=== PATIENT | female | born 1940 | race Caucasian/White ===

== ENCOUNTER 2018-08-27 02:18 | Observation (INO) | payer MEDICARE, OTHER ==
[~2018-08-27] VITALS: Ht 160 cm; Wt 99.6 kg
[2018-08-27 02:52] LABS: BASOPHILS PERCENT AUTO 1 % (0-2); EOSINOPHILS ABSOLUTE AUTO 1.46 K/mm3 (0.00-0.68); EOSINOPHILS PERCENT AUTO 11 % (0-6); Hematocrit 31.5 % (33.0-51.0); Hemoglobin 9.7 g/dL (11.5-16.0); IMMATURE GRAN ABSOLUTE AUTO 0.16 K/mm3 (0.00-0.10); IMMATURE GRAN PERCENT AUTO 1 % (0-1); LYMPHOCYTES ABSOLUTE AUTO 1.43 K/mm3 (0.84-5.20); LYMPHOCYTES PERCENT AUTO 11 % (21-46); MONOCYTES ABSOLUTE AUTO 0.99 K/mm3 (0.16-1.47); MONOCYTES PERCENT AUTO 7 % (4-13); Mean Corpuscular HGB 31.4 pg (26.0-34.0); Mean Corpuscular HGB Conc 30.8 g/dL (31.5-36.5); Mean Corpuscular Volume 102 fL (80-100); Mean Platelet Volume 10.5 fL (9.1-12.4); NEUTROPHILS ABSOLUTE AUTO 9.22 K/mm3 (1.96-9.15); NEUTROPHILS PERCENT AUTO 69 % (41-73); Platelet Count 254 K/mm3 (150-400); RDW Coefficient Variation 14.7 % (11.7-14.2); RDW Standard Deviation 54.5 fL (35.1-46.3); Red Blood Cell Count 3.09 M/mm3 (3.80-5.20); White Blood Cell Count 13.36 K/mm3 (4.00-11.30)
[2018-08-27] MEDS ORDERED: ASPI81CH PO (03:06)
[2018-08-27] MEDS ORDERED: ATOR20 PO (03:08)
[2018-08-27] MEDS ORDERED: WARF2.5 PO (03:09)
[2018-08-27] MEDS ORDERED: LEVSOD75 PO (03:09)
[2018-08-27] MEDS ORDERED: POTCHL20ER PO (03:09)
[2018-08-27] MEDS ORDERED: FURO40 PO (03:09)
[2018-08-27] MEDS ORDERED: DOXA1 PO (03:10)
[2018-08-27] MEDS ORDERED: PRAM.5 PO (03:10)
[2018-08-27] MEDS ORDERED: AMLO5 PO (03:10)
[2018-08-27] MEDS ORDERED: METO50ER PO (03:11)
[2018-08-27] MEDS ORDERED: LOSARTAN POTAS100 MG PO (03:11)
[2018-08-27] MEDS ORDERED: CHOL10002 PO (03:12)
[2018-08-27] MEDS ORDERED: OMEPRAZOLE MAGN20 MG PO (03:12)
[2018-08-27] MEDS ORDERED: VIT1CAPS12 PO (03:12)
[2018-08-27] MEDS ORDERED: MONT10T PO (03:13)
[2018-08-27] MEDS ORDERED: ACET325 PO (03:14)
[2018-08-27 03:15] LABS: Alanine Aminotransfer (ALT/SGP 50 U/L (12-78); Albumin/Globulin Ratio 0.7 (0.8-1.8); Alk Phos 260 U/L (50-136); Anion Gap 8 mmol/L (6-16); Aspartate Aminotrans (AST/SGOT 28 U/L (12-37); Bilirubin, Total 0.5 mg/dL (0.1-1.0); Blood Urea Nitrogen 37 mg/dL (8-24); Bun/Creatinine Ratio 31.6 (12.0-20.0); CO2, Blood 25 mmol/L (21-32); Calcium, Blood 8.4 mg/dL (8.5-10.1); Chloride, Blood 109 mmol/L (98-108); Creatinine, Blood 1.17 mg/dL (0.40-1.00); Globulin, Blood 4.6 g/dL (2.2-4.0); Glomerular Filtration Rate 47 (60-); Glucose, Blood 134 mg/dL (70-99); Potassium, Blood 4.4 mmol/L (3.5-5.5); Sodium, Blood 142 mmol/L (136-145); Total Protein, Blood 7.6 g/dL (6.4-8.2); Troponin I <0.015 ng/mL (0.000-0.040)
[2018-08-27 05:29] LABS: International Normalized Ratio 1.29; Prothrombin Time Results 13.1 Sec (9.7-11.5)
[2018-08-27 05:42] LABS: Magnesium, Blood 2.6 mg/dL (1.6-2.4)
[2018-08-27 05:59] LABS: Thyroid Stimulating Hormone 3.12 uIU/mL (0.360-4.800)
== END 2018-08-27 12:23 | disposition home or self-care (01) ==
LOC: ER 02:18 → MEDS 04:59 → ER 04:59 → MEDS 05:00
PROVIDERS: Emergency Medicine; Family Medicine
DX: J96.01 Acute respiratory failure with hypoxia (principal); I50.9 Heart failure, unspecified; I48.2 Chronic atrial fibrillation; D72.829 Elevated white blood cell count, unspecified; G47.33 Obstructive sleep apnea (adult) (pediatric); F17.210 Nicotine dependence, cigarettes, uncomplicated; D53.9 Nutritional anemia, unspecified; I48.91 Unspecified atrial fibrillation; R74.8 Abnormal levels of other serum enzymes; D63.8 Anemia in other chronic diseases classified elsewhere; R79.89 Other specified abnormal findings of blood chemistry; N28.9 Disorder of kidney and ureter, unspecified; Z88.8 Allergy status to other drugs, medicaments and biological substances; Z79.82 Long term (current) use of aspirin; Z79.899 Other long term (current) drug therapy; Z91.19 Patient's noncompliance with other medical treatment and regimen; Z79.01 Long term (current) use of anticoagulants; Z86.73 Personal history of transient ischemic attack (TIA), and cerebral infarction without residual deficits
CPT/HCPCS: 36415; 71046; 80053; 82607; 82728; 82746; 83540; 83550; 83735; 83880; 84443; 84484; 85025; 85610; 93005; 93010; 93306; 96374; 99285-25; J1940

== ENCOUNTER → 2019-08-07 | Outpatient (CLI) | payer MEDICARE, OTHER ==
[~2019-08-07] MED LIST: ACET325 PO; AMLO5 PO; ASPI81CH PO; ATOR20 PO; CHOL10002 PO; DOXA1 PO; FURO40 PO; LEVSOD75 PO; LOSARTAN POTAS100 MG PO; METO50ER PO; MONT10T PO; OMEPRAZOLE MAGN20 MG PO; POTCHL20ER PO; PRAM.5 PO; VIT1CAPS12 PO; WARF2.5 PO
== END | disposition home or self-care (01) ==
LOC: LAB SHORT 13:12 → LAB EV 13:12
DX: S81.802A Unspecified open wound, left lower leg, initial encounter (principal)
CPT/HCPCS: 87070; 87075; 87205

== ENCOUNTER 2020-01-06 10:36 | Inpatient (IN) | payer MEDICARE, OTHER ==
[~2020-01-06] VITALS: Ht 157.5 cm; Wt 90.2 kg
[~2020-01-06 10:36] MED LIST changes: -ASPI81CH PO; -ATOR20 PO; -CHOL10002 PO; -FURO40 PO; -LEVSOD75 PO; -METO50ER PO; -MONT10T PO; -OMEPRAZOLE MAGN20 MG PO; -POTCHL20ER PO; -VIT1CAPS12 PO; -WARF2.5 PO
[2020-01-06 11:19] LABS: Source, Urine Catheter
[2020-01-06 11:23] LABS: BASOPHILS ABSOLUTE AUTO 0.07 K/mm3 (0.00-0.23); BASOPHILS PERCENT AUTO 0 % (0-2); EOSINOPHILS ABSOLUTE AUTO 0.22 K/mm3 (0.00-0.68); EOSINOPHILS PERCENT AUTO 1 % (0-6); IMMATURE GRAN ABSOLUTE AUTO 0.06 K/mm3 (0.00-0.10); IMMATURE GRAN PERCENT AUTO 0 % (0-1); LYMPHOCYTES ABSOLUTE AUTO 0.73 K/mm3 (0.84-5.20); LYMPHOCYTES PERCENT AUTO 5 % (21-46); MONOCYTES ABSOLUTE AUTO 1.21 K/mm3 (0.16-1.47); MONOCYTES PERCENT AUTO 8 % (4-13); Mean Corpuscular HGB 32.4 pg (26.0-34.0); Mean Corpuscular HGB Conc 31.7 g/dL (31.5-36.5); Mean Corpuscular Volume 102 fL (80-100); Mean Platelet Volume 11.2 fL (9.1-12.4); NEUTROPHILS ABSOLUTE AUTO 13.91 K/mm3 (1.96-9.15); NEUTROPHILS PERCENT AUTO 86 % (41-73); Platelet Count 229 K/mm3 (150-400); RDW Coefficient Variation 15.6 % (11.7-14.2); RDW Standard Deviation 59.3 fL (35.1-46.3); Red Blood Cell Count 4.01 M/mm3 (3.80-5.20)
[2020-01-06 11:25] LABS: Bilirubin, Urine Neg (Neg); Blood, Urine 2+ (Neg); Glucose Qualitative, Urine Neg (Neg); Ketones, Urine Neg (Neg); Leukocyte Esterase, Urine 3+ (Neg); Nitrite, Urine Pos (Neg); Protein, Urine 1+ (Neg); Specific Gravity, Urine 1.015 (1.003-1.022); Urobilinogen, Urine NORM (Normal)
[2020-01-06 11:31] LABS: Appearance, Urine Hazy (Clear); Color, Urine Yellow (P-Yellow)
[2020-01-06 11:32] LABS: Bacteria Mod /hpf; Squamous Epithelial Cells Mod /hpf (Few)
[2020-01-06 11:48] LABS: Albumin, Blood 3.5 g/dL (3.4-5.0); Albumin/Globulin Ratio 0.8 (0.8-1.8); Bilirubin, Total 0.6 mg/dL (0.1-1.0); Bun/Creatinine Ratio 34.3 (12.0-20.0); Calcium, Blood 8.9 mg/dL (8.5-10.1); Creatinine, Blood 1.08 mg/dL (0.40-1.00); Globulin, Blood 4.4 g/dL (2.2-4.0); Potassium, Blood 4.9 mmol/L (3.5-5.5); Total Protein, Blood 7.9 g/dL (6.4-8.2)
[2020-01-06] MEDS ORDERED: LEVSOD75 PO (12:41)
[2020-01-06] MEDS ORDERED: ATOR20 PO (12:41)
[2020-01-06] MEDS ORDERED: ASPIR 8181 M1 PO (12:41)
[2020-01-06] MEDS ORDERED: K-Dur10 MEQ PO (12:42)
[2020-01-06] MEDS ORDERED: FURO40 PO (12:43)
[2020-01-06] MEDS ORDERED: METO100 PO (12:45)
[2020-01-06] MEDS ORDERED: VITAMIN D325 MCG PO (12:46)
[2020-01-06] MEDS ORDERED: ALLEGRA ALLERG180 MG PO (12:47)
[2020-01-06] MEDS ORDERED: MONT10T PO (12:47)
[2020-01-06] MEDS ORDERED: OMEP20ER PO (12:47)
[2020-01-06] MEDS ORDERED: Fergon240 M1 PO (12:48)
[2020-01-06] MEDS ORDERED: LOSA25 PO (12:48)
[2020-01-06] MEDS ORDERED: DILT120 PO (12:48)
[2020-01-06] MEDS ORDERED: WARF4 PO (12:49)
[2020-01-06] MEDS ORDERED: WARF6 PO (12:50)
[2020-01-06] MEDS ORDERED: PRESERVISION A1 EACH PO ×2 (12:52→16:30)
[2020-01-06] MEDS ORDERED: GABA100 PO ×2 (12:53)
[2020-01-06] MEDS ORDERED: Oxybutynin Chlo10 MG PO (12:54)
[2020-01-06] MEDS ORDERED: Mirtazapine7.5 MG PO (12:54)
[2020-01-06] MEDS ORDERED: ROPINIROLE HCL0.5 MG PO (12:55)
[2020-01-06] MEDS ORDERED: ALDACTONE25 M1 PO (12:56)
[2020-01-06] MEDS ORDERED: Colace100 MG PO (12:57)
[2020-01-06] MEDS ORDERED: CALC.25 PO (12:58)
[2020-01-06] MEDS ORDERED: CALCIUM 600 +1 EA11 PO (12:59)
[2020-01-06] MEDS ORDERED: CHOLP PO (13:00)
[2020-01-06] MEDS ORDERED: ALBU90OI INH (13:00)
[2020-01-06] MEDS ORDERED: Vitamin K100 MCG PO (13:00)
[2020-01-06] MEDS ORDERED: CLOB.05TO TOP (13:01)
[2020-01-06] MEDS ORDERED: Eq Liquid Anta769 ML PO (13:03)
[2020-01-06] MEDS ORDERED: BENZ100A PO (13:03)
[2020-01-06] MEDS ORDERED: CERAVE MOISTUR TOP (13:05)
[2020-01-06] MEDS ORDERED: SALONPAS TOP (13:07)
[2020-01-06] MEDS ORDERED: BISA10S PR (13:08)
[2020-01-06] MEDS ORDERED: MILK OF MA400 MG/5 M PO (13:08)
[2020-01-06] MEDS ORDERED: LOPE2C PO (13:10)
[2020-01-06] MEDS ORDERED: [UNRECOGNIZED DRUG - OTHER] TOP (13:11)
[2020-01-06 14:15] LABS: Adenovirus Not Detected (NOT DETECT); Bordetella pertussis Not Detected (NOT DETECT); Chlamydophila pneumoniae Not Detected (NOT DETECT); Coronavirus 229E Not Detected (NOT DETECT); Coronavirus HKU1 Not Detected (NOT DETECT); Coronavirus NL63 Not Detected (NOT DETECT); Coronavirus OC43 Not Detected (NOT DETECT); Human Metapneumovirus Not Detected (NOT DETECT); Human Rhinovirus/Enterovirus Not Detected (NOT DETECT); Influenza A/2009-H1 Not Detected (NOT DETECT); Influenza A/H1 Not Detected (NOT DETECT); Influenza A/H3 Not Detected (NOT DETECT); Influenza B Not Detected (NOT DETECT); Mycoplasma pneumoniae Not Detected (NOT DETECT); Parainfluenza Virus 1 Not Detected (NOT DETECT); Parainfluenza Virus 2 Not Detected (NOT DETECT); Parainfluenza Virus 3 Not Detected (NOT DETECT); Parainfluenza Virus 4 Not Detected (NOT DETECT); Respiratory Syncytial Virus Not Detected (NOT DETECT)
--- NOTE | 2020-01-06 18:34 | NUR ---
SHIFT SUMMARY: ASSUMED CARE OF PATIENT UPON HER ARRIVAL FROM ED. ONE PERSON ASSIST FROM GURNEY TO BED, GAIT WEAK. A&O X 2, UNSURE OF DATE/DAY, KNOWS WHY SHE'S IN THE HOSPITAL. LUNGS CTAB, ON RA, NO COUGH. IN AFIB, RATE 70-90'S. KAPOOR DRAINING CLEAR YELLOW URINE. AFEBRILE, VSS, DENIES PAIN. ABLE TO CHANGE POSITIONS INDEPENDENTLY. NO DIFFICULTY SWALLOWING. EDUCATED ABOUT UNIT ROUTINE, CALL LIGHT, AND FALL/PRESSURE ULCER PREVENTION; VERBALIZED UNDERSTANDING, BUT NEEDS REIFORCEMENT.
--- NOTE | 2020-01-06 21:57 | NUR ---
ALERTED CARMEN (FILM TESTS CHECKER) OF EXTENSIVE HOME MED LIST W/ONLY A PORTION OF THEM RX'D AT THIS TIME. SHE REVIEWED THEM AND STATED THE DAY MD CAN REEVALUATE HOME MEDS AND NEED OF CONTINUATION IN AM.
--- NOTE | 2020-01-07 01:30 | NUR ---
PT HAS BEEN VERY FORGETFUL AND IMPULSIVE OOB THIS SHIFT. SHE C/O RESTLESS LEGS THAT ARE "UNBEARABLE" SO CAUSE DIFFICULTY SLEEPING RESULT. SHE SEEMS ORIENTED IN CONVERSATION BUT MAKES NONSENSICAL STATEMENTS AND BEHAVIORS. SHE'S AWARE OF HER KAPOOR AND IT'S PURPOSE TO DRAIN URINE BUT SHE UNCLAMMPED IT HERSELF TO EMPTY IT ONTO THE FLOOR AND INTO HER BED BECAUSE SHE WAS "TRYING TO PEE". SHE'S AWARE OF HER LINES AND CAN TELL STAFF WHAT EACH IS FOR BUT YET SHE REMOVES AND DISCONNECTS THEM REPEATEDLY. ALERTED TO SITUATION W/HOME REMERON AND REQUIP RX'D AND GIVEN NOW. IT SEEMS THE MAJORITY OF THIS AGGITATED BEHAVIOR IS STEMMING FROM HER LEG DISCOMFORT AND THUS NOT PROVIDING ADEQUATE SLEEP REST. CREAM PROVIDED FOR "ITCHING LEGS" WELL. WILL ASSESS FOR EFFECT.
[2020-01-07 05:22] LABS: BASOPHILS ABSOLUTE AUTO 0.05 K/mm3 (0.00-0.23); BASOPHILS PERCENT AUTO 1 % (0-2); EOSINOPHILS ABSOLUTE AUTO 0.36 K/mm3 (0.00-0.68); EOSINOPHILS PERCENT AUTO 3 % (0-6); Hematocrit 39.2 % (33.0-51.0); Hemoglobin 12.3 g/dL (11.5-16.0); IMMATURE GRAN ABSOLUTE AUTO 0.04 K/mm3 (0.00-0.10); IMMATURE GRAN PERCENT AUTO 0 % (0-1); LYMPHOCYTES ABSOLUTE AUTO 1.39 K/mm3 (0.84-5.20); LYMPHOCYTES PERCENT AUTO 13 % (21-46); MONOCYTES ABSOLUTE AUTO 0.92 K/mm3 (0.16-1.47); MONOCYTES PERCENT AUTO 9 % (4-13); Mean Corpuscular HGB 32.5 pg (26.0-34.0); Mean Corpuscular HGB Conc 31.4 g/dL (31.5-36.5); Mean Corpuscular Volume 103 fL (80-100); Mean Platelet Volume 11.5 fL (9.1-12.4); NEUTROPHILS ABSOLUTE AUTO 7.89 K/mm3 (1.96-9.15); NEUTROPHILS PERCENT AUTO 74 % (41-73); Platelet Count 194 K/mm3 (150-400); RDW Coefficient Variation 15.7 % (11.7-14.2); Red Blood Cell Count 3.79 M/mm3 (3.80-5.20); White Blood Cell Count 10.65 K/mm3 (4.00-11.30)
--- NOTE | 2020-01-07 05:31 | NUR ---
SUMMARY: PT'S ORIENTATION SEEMS TO BE LABILE. SHE APPEARS TO ANSWER Q'S APPROPRIATE BUT EXHIBITS IMPULSIVE AND NONSENSICAL BEHAVIOR DESPITE DESCRIBING AWARENESS OF EVENT, PURPOSE OF LINES AND KNOWLEGE OF MEDS. BED ALARM IS ON FOR FREQ ATTEMPTS OOB BY SELF AND FALL RISK. CONSTANT EDUCATION AND REMINDERS WERE PROVIDED. PT WAS MEDICATED W/TYLENOL PRN FOR BUTTOCKS AND LEG PAIN RELATED TO RESTLESS LEGS. SHE WAS VERY ANXIOUS, COULDN'T HOLD STILL (LIKELY D/T RESTLESS LEGS) AND WAS UNABLE TO SLEEP RESULT. NOTIFIED W/REMERON AND REQUIP RX'D PER HOME MEDS. SHE HAS SINCE CALMED DOWN AND BEEN ABLE TO SLEEP. HER HOME MED LIST IS EXTENSIVE THOUGH AND VERY FEW ARE RX'D AT THIS TIME, WILL ENSURE DAY STAFF ARE AWARE PER INSTRUCTION FROM [facility]. SHE'S IN ISO FOR R/O COVID W/ADMISSION FOR PNM. LS ARE CLEAR T/O AND DIM IN BASES, SPO2 WNL ON RA, RESPS E/U AND CONT BIOX INTACT. KAPOOR WAS PLACED IN ER AND REMAINS PATENT AND DRAINING. THIS LIKELY CAN BE REMOVED TODAY W/DAY SHIFT EVALUATION. SHE REMAINS IN AFIB W/HR 70'S-90'S BPM. TRACE EDEME NOTED TO BLE'S WHICH APPEAR DRY, PEELING AND DISCOLORED. NO ACUTE CHANGES, VSS/AFEBRILE. BP ELEVATED BUT AM HOME MEDS STILL NEED ADDRESSED AND PT ASYMPTOMATIC OF CARDIAC DISTRESS. WCTM AND REPORT TO DAY RN.
[2020-01-07 05:40] LABS: Albumin/Globulin Ratio 0.7 (0.8-1.8); Bilirubin, Total 0.8 mg/dL (0.1-1.0); Bun/Creatinine Ratio 27.6 (12.0-20.0); Calcium, Blood 8.7 mg/dL (8.5-10.1); Creatinine, Blood 1.05 mg/dL (0.40-1.00); Globulin, Blood 4.5 g/dL (2.2-4.0); Magnesium, Blood 2.5 mg/dL (1.6-2.4); Potassium, Blood 4.3 mmol/L (3.5-5.5); Total Protein, Blood 7.5 g/dL (6.4-8.2)
[2020-01-07 15:59] LABS: International Normalized Ratio 2.14; Prothrombin Time Results 21.9 Sec (9.7-11.5)
--- NOTE | 2020-01-07 17:38 | NUR ---
PATIENT IS ALERT AND ORIENTED TO SELF, FAMILY AND FOLLOWING DIRECTIONS. ACCORDING TO HE DAUGHTER, SHE HAS BECOME MORE CONFUSED RECENTLY AT HOME. THE PATIENT DID HAVE BURSTS OF CONFUSION, HALUCINATIONS AND TIMES WHERE SHE SEEMED LUCID. HER KAPOOR WAS DC'D TODAY. SHE URINATED IN THE TOILET. SHE WAS HYPERTENSIVE TODAY, TREATED PER EMAR. SHE HAS RESTLESS LEGS, SHE MOVES AROUND IN BED ON HER OWN WELL. SHE WILL GET OUT OF BED AND OUT OF THE CHAIR ALONE, ALARMS ON. SHE HAS TALKED ON THE PHONE WITH HER DAUGHTERS TODAY. HER HOME MEDICATIONS WERE ORDERED BY DR. STRINGER. WILL CONTINUE TO MONITOR.
[2020-01-08 04:52] LABS: BASOPHILS ABSOLUTE AUTO 0.07 K/mm3 (0.00-0.23); BASOPHILS PERCENT AUTO 1 % (0-2); EOSINOPHILS ABSOLUTE AUTO 0.48 K/mm3 (0.00-0.68); EOSINOPHILS PERCENT AUTO 4 % (0-6); Hematocrit 40.8 % (33.0-51.0); Hemoglobin 12.8 g/dL (11.5-16.0); IMMATURE GRAN ABSOLUTE AUTO 0.07 K/mm3 (0.00-0.10); IMMATURE GRAN PERCENT AUTO 1 % (0-1); LYMPHOCYTES ABSOLUTE AUTO 1.27 K/mm3 (0.84-5.20); LYMPHOCYTES PERCENT AUTO 12 % (21-46); MONOCYTES ABSOLUTE AUTO 1.05 K/mm3 (0.16-1.47); MONOCYTES PERCENT AUTO 10 % (4-13); Mean Corpuscular HGB 31.9 pg (26.0-34.0); Mean Corpuscular HGB Conc 31.4 g/dL (31.5-36.5); Mean Corpuscular Volume 102 fL (80-100); NEUTROPHILS ABSOLUTE AUTO 8.15 K/mm3 (1.96-9.15); NEUTROPHILS PERCENT AUTO 74 % (41-73); Platelet Count 198 K/mm3 (150-400); RDW Coefficient Variation 15.3 % (11.7-14.2); RDW Standard Deviation 58.6 fL (35.1-46.3); Red Blood Cell Count 4.01 M/mm3 (3.80-5.20); White Blood Cell Count 11.09 K/mm3 (4.00-11.30)
[2020-01-08 05:06] LABS: International Normalized Ratio 1.87; Prothrombin Time Results 19.3 Sec (9.7-11.5)
[2020-01-08 05:15] LABS: Albumin/Globulin Ratio 0.6 (0.8-1.8); Bun/Creatinine Ratio 26.7 (12.0-20.0); Calcium, Blood 8.9 mg/dL (8.5-10.1); Creatinine, Blood 1.01 mg/dL (0.40-1.00); Globulin, Blood 4.8 g/dL (2.2-4.0); Potassium, Blood 3.6 mmol/L (3.5-5.5); Total Protein, Blood 7.8 g/dL (6.4-8.2)
--- NOTE | 2020-01-08 05:16 | NUR ---
SUMMARY PT HAD NO ISSUES NOTED. PT SLEPT T/O SHIFT. PT CURRENTLY SLEEPING IN NO DISTRESS. CALL LIGHT IN REACH. BED ALARM ON.
--- NOTE | 2020-01-08 17:40 | NUR ---
ALERT. ORIENTED. FORGETFUL. HAD PT/OT AND DID WELL. STEADY GAIT IN HALLWAY. NO ACUTE CHANGES. UNLABORED RESPIRATIONS. WCTM
[2020-01-09 05:26] LABS: International Normalized Ratio 2.26; Prothrombin Time Results 23.1 Sec (9.7-11.5)
[2020-01-09 05:33] LABS: Albumin, Blood 2.9 g/dL (3.4-5.0); Anion Gap 8 mmol/L (6-16); Blood Urea Nitrogen 39 mg/dL (8-24); CO2, Blood 26 mmol/L (21-32); Calcium, Blood 9.2 mg/dL (8.5-10.1); Chloride, Blood 106 mmol/L (98-108); Glomerular Filtration Rate 42 (60-); Glucose, Blood 115 mg/dL (70-99); Sodium, Blood 140 mmol/L (136-145)
--- NOTE | 2020-01-09 12:15 | NUR ---
REPORT CALLED TO RAY RIVAS. ANSWER ALL QUESTIONS. OBTAINED FAX NUMBER AND WILL FAX OVER ORDERS.
[2020-01-09] MEDS ORDERED: LEVOFLOXACIN750 MG PO (12:51)
--- NOTE | 2020-01-09 13:14 | NUR ---
REVIEW D'CW/PATIENT ANSWER ALL QUESTIONS. AWARE ANTIBIOTIC IS EVERY OTHER DAY. LEFT MESSAGE ON 'S OFFICE VOICE MAIL, THEY WERE CLOSED FOR LUNCH, TO CALL PATIENT THIS AFTER NOON AND SET UP APPT FOR NEXT WEEK FOR F/U. IN W/C W/TECHNICIAN ANATOMIC PATHOLOGY TO POV
== END 2020-01-09 13:23 | disposition home or self-care (01) | DRG 871 ==
LOC: ER 10:36 → MEDS 12:50 → ENPENDDIS 01-09 11:00 → MEDS 01-09 13:23
PROVIDERS: Emergency Medicine; Internal Medicine; Pharmacist; ADMIT Internal Medicine
PROC: 8E0ZXY6 Isolation (ICD-10-PCS; principal; 2020-01-06)
DX: A41.51 Sepsis due to Escherichia coli [E. coli] (principal); J18.9 Pneumonia, unspecified organism; N39.0 Urinary tract infection, site not specified; I50.32 Chronic diastolic (congestive) heart failure; I48.20 Chronic atrial fibrillation, unspecified; I13.0 Hypertensive heart and chronic kidney disease with heart failure and stage 1 through stage 4 chronic kidney disease, or unspecified chronic kidney disease; N18.3 Chronic kidney disease, stage 3 (moderate); I25.10 Atherosclerotic heart disease of native coronary artery without angina pectoris; G47.33 Obstructive sleep apnea (adult) (pediatric); E03.9 Hypothyroidism, unspecified; E66.9 Obesity, unspecified; Z68.34 Body mass index [BMI] 34.0-34.9, adult; Z95.5 Presence of coronary angioplasty implant and graft; Z86.73 Personal history of transient ischemic attack (TIA), and cerebral infarction without residual deficits; Z99.89 Dependence on other enabling machines and devices; Z79.82 Long term (current) use of aspirin
CPT/HCPCS: 0099U; 36415; 51702; 71045; 80053; 80069; 81001; 83605; 83735; 83880; 85025; 85610; 87040; 87077; 87086; 87186; 93005; 93010; 94762; 96361-59; 96365-59; 96368; 97161; 97165; 97530; 99285-25; A9270; J0456; J0696; J1650; J7030; J7050; P9612; U0003

== ENCOUNTER 2020-01-26 18:59 | Emergency (ER) | payer MEDICARE, OTHER ==
[~2020-01-26] VITALS: Ht 160 cm; Wt 89.8 kg
[~2020-01-26 18:59] MED LIST changes: +ALBU90OI INH; +ALDACTONE25 M1 PO; +ALLEGRA ALLERG180 MG PO; +ASPIR 8181 M1 PO; +ATOR20 PO; +BENZ100A PO; +BISA10S PR; +CALC.25 PO; +CALCIUM 600 +1 EA11 PO; +CERAVE MOISTUR TOP; +CHOLP PO; +CLOB.05TO TOP; +Colace100 MG PO; +DILT120 PO; +Eq Liquid Anta769 ML PO; +FURO40 PO; +Fergon240 M1 PO; +GABA100 PO; +K-Dur10 MEQ PO; +LEVOFLOXACIN750 MG PO; +LEVSOD75 PO; +LOPE2C PO; +LOSA25 PO; +METO100 PO; +MILK OF MA400 MG/5 M PO; +MONT10T PO; +Mirtazapine7.5 MG PO; +OMEP20ER PO; +Oxybutynin Chlo10 MG PO; +PRESERVISION A1 EACH PO; +ROPINIROLE HCL0.5 MG PO; +SALONPAS TOP; +VITAMIN D325 MCG PO; +Vitamin K100 MCG PO; +WARF4 PO; +WARF6 PO; +[UNRECOGNIZED DRUG - OTHER] TOP
[2020-01-26 19:53] LABS: BASOPHILS ABSOLUTE AUTO 0.06 K/mm3 (0.00-0.23); BASOPHILS PERCENT AUTO 1 % (0-2); EOSINOPHILS ABSOLUTE AUTO 0.44 K/mm3 (0.00-0.68); EOSINOPHILS PERCENT AUTO 5 % (0-6); Hematocrit 37.7 % (33.0-51.0); Hemoglobin 11.5 g/dL (11.5-16.0); IMMATURE GRAN ABSOLUTE AUTO 0.06 K/mm3 (0.00-0.10); IMMATURE GRAN PERCENT AUTO 1 % (0-1); LYMPHOCYTES ABSOLUTE AUTO 1.16 K/mm3 (0.84-5.20); LYMPHOCYTES PERCENT AUTO 13 % (21-46); MONOCYTES ABSOLUTE AUTO 0.73 K/mm3 (0.16-1.47); MONOCYTES PERCENT AUTO 8 % (4-13); Mean Corpuscular HGB 31.8 pg (26.0-34.0); Mean Corpuscular HGB Conc 30.5 g/dL (31.5-36.5); Mean Corpuscular Volume 104 fL (80-100); NEUTROPHILS ABSOLUTE AUTO 6.57 K/mm3 (1.96-9.15); NEUTROPHILS PERCENT AUTO 73 % (41-73); Platelet Count 245 K/mm3 (150-400); RDW Coefficient Variation 16.6 % (11.7-14.2); RDW Standard Deviation 63.3 fL (35.1-46.3); Red Blood Cell Count 3.62 M/mm3 (3.80-5.20); White Blood Cell Count 9.02 K/mm3 (4.00-11.30)
[2020-01-26] MEDS ORDERED: MILK OF MA400 MG/5 M PO (19:53)
[2020-01-26] MEDS ORDERED: ACET325 PO (19:54)
[2020-01-26 20:07] LABS: Albumin/Globulin Ratio 0.7 (0.8-1.8); Bilirubin, Total 0.7 mg/dL (0.1-1.0); Bun/Creatinine Ratio 33.2 (12.0-20.0); Calcium, Blood 8.7 mg/dL (8.5-10.1); Creatinine, Blood 0.99 mg/dL (0.40-1.00); Globulin, Blood 4.5 g/dL (2.2-4.0); Potassium, Blood 4.2 mmol/L (3.5-5.5); Total Protein, Blood 7.5 g/dL (6.4-8.2)
[2020-01-26 20:09] LABS: International Normalized Ratio 2.19; Prothrombin Time Results 22.4 Sec (9.7-11.5)
[2020-01-26 21:01] LABS: Source, Urine Clean Catch
[2020-01-26 21:04] LABS: Bilirubin, Urine Neg (Neg); Blood, Urine 1+ (Neg); Glucose Qualitative, Urine Neg (Neg); Ketones, Urine Neg (Neg); Leukocyte Esterase, Urine Neg (Neg); Nitrite, Urine Neg (Neg); Protein, Urine 2+ (Neg); Specific Gravity, Urine 1.025 (1.003-1.022); Urobilinogen, Urine NORM (Normal)
[2020-01-26 21:27] LABS: Appearance, Urine Clear (Clear); Color, Urine Yellow (P-Yellow)
[2020-01-26 21:30] LABS: Bacteria Rare /hpf; Squamous Epithelial Cells Mod /hpf (Few)
== END 2020-01-26 22:10 | disposition home or self-care (01) ==
LOC: ER 18:59
PROVIDERS: Emergency Medicine
DX: R53.1 Weakness (principal); I11.0 Hypertensive heart disease with heart failure; I50.9 Heart failure, unspecified; I25.10 Atherosclerotic heart disease of native coronary artery without angina pectoris; I48.91 Unspecified atrial fibrillation; E78.5 Hyperlipidemia, unspecified; K21.9 Gastro-esophageal reflux disease without esophagitis; Z86.73 Personal history of transient ischemic attack (TIA), and cerebral infarction without residual deficits; G47.30 Sleep apnea, unspecified; Z88.6 Allergy status to analgesic agent; Z88.8 Allergy status to other drugs, medicaments and biological substances; Z79.899 Other long term (current) drug therapy; Z79.82 Long term (current) use of aspirin; Z79.01 Long term (current) use of anticoagulants
CPT/HCPCS: 70450; 71046; 80053; 81001; 85025; 85610; 85730; 93005; 93010; 99285-25

== ENCOUNTER → 2020-07-08 | Outpatient (CLI) | payer MEDICARE, OTHER | END | disposition home or self-care (01) | LOC: PLD 15:47 → LAB SHORT 15:47 | DX: D48.5 Neoplasm of uncertain behavior of skin (principal) | CPT/HCPCS: 88305 ==

== ENCOUNTER 2020-07-12 17:08 | Emergency (ER) | payer MEDICARE, OTHER ==
[~2020-07-12] VITALS: Ht 160 cm; Wt 90.7 kg
[2020-07-12 17:32] LABS: PCO2 Arterial 41.5 mmHg (35-45); PO2 Arterial 61.8 mmHg (80-100); pH Blood Arterial 7.42 (7.35-7.45)
[2020-07-12 17:53] LABS: BASOPHILS ABSOLUTE AUTO 0.09 K/mm3 (0.00-0.23); BASOPHILS PERCENT AUTO 1 % (0-2); EOSINOPHILS PERCENT AUTO 7 % (0-6); Hematocrit 46.3 % (33.0-51.0); Hemoglobin 14.3 g/dL (11.5-16.0); IMMATURE GRAN ABSOLUTE AUTO 0.05 K/mm3 (0.00-0.10); IMMATURE GRAN PERCENT AUTO 1 % (0-1); LYMPHOCYTES ABSOLUTE AUTO 0.81 K/mm3 (0.84-5.20); LYMPHOCYTES PERCENT AUTO 8 % (21-46); MONOCYTES ABSOLUTE AUTO 0.71 K/mm3 (0.16-1.47); MONOCYTES PERCENT AUTO 7 % (4-13); Mean Corpuscular HGB 30.4 pg (26.0-34.0); Mean Corpuscular HGB Conc 30.9 g/dL (31.5-36.5); Mean Corpuscular Volume 99 fL (80-100); Mean Platelet Volume 10.9 fL (9.1-12.4); NEUTROPHILS ABSOLUTE AUTO 7.87 K/mm3 (1.96-9.15); NEUTROPHILS PERCENT AUTO 77 % (41-73); Platelet Count 243 K/mm3 (150-400); RDW Coefficient Variation 15.7 % (11.7-14.2); RDW Standard Deviation 57.5 fL (35.1-46.3); White Blood Cell Count 10.23 K/mm3 (4.00-11.30)
[2020-07-12 18:09] LABS: International Normalized Ratio 2.05; Prothrombin Time Results 21.1 Sec (9.7-11.5)
[2020-07-12 18:15] LABS: Alanine Aminotransfer (ALT/SGP 58 U/L (12-78); Albumin, Blood 3.7 g/dL (3.4-5.0); Albumin/Globulin Ratio 0.8 (0.8-1.8); Alk Phos 379 U/L (50-136); Anion Gap 8 mmol/L (6-16); Aspartate Aminotrans (AST/SGOT 70 U/L (12-37); Bilirubin, Total 0.9 mg/dL (0.1-1.0); Blood Urea Nitrogen 30 mg/dL (8-24); Bun/Creatinine Ratio 23.1 (12.0-20.0); CO2, Blood 26 mmol/L (21-32); Calcium, Blood 9.7 mg/dL (8.5-10.1); Chloride, Blood 108 mmol/L (98-108); Ethanol (Alcohol), Blood, Med <3 mg/dL; Globulin, Blood 4.7 g/dL (2.2-4.0); Glomerular Filtration Rate 42 (60-); Glucose, Blood 116 mg/dL (70-99); Potassium, Blood 4.4 mmol/L (3.5-5.5); Sodium, Blood 142 mmol/L (136-145); Total Protein, Blood 8.4 g/dL (6.4-8.2); Troponin I <0.015 ng/mL (0.000-0.040)
[2020-07-12 18:21] LABS: U Amphetamine Screen Not Detected; U Barbituate Screen Not Detected; U Benzodiazapine Screen Not Detected; U Buprenorphine Screen Not Detected; U Cannabinoids Screen Not Detected; U Cocaine Screen Not Detected; U Methadone Screen Not Detected; U Methamphetamine Screen Not Detected; U Opiates Screen Not Detected; U Oxycodone Screen Not Detected; U Phencyclidine Screen Not Detected; U Propoxyphene Screen Not Detected
[2020-07-12 18:26] LABS: Free Thyroxine 1.52 ng/dL (0.70-1.60)
[2020-07-12 18:28] LABS: Thyroid Stimulating Hormone 1.32 uIU/mL (0.360-4.800); Triiodothyronine, Free 2.43 pg/mL (2.18-3.98)
== END 2020-07-12 19:45 | disposition short-term general hospital (02) ==
LOC: ER 17:08
PROVIDERS: Emergency Medicine
DX: I63.81 Other cerebral infarction due to occlusion or stenosis of small artery (principal); G81.91 Hemiplegia, unspecified affecting right dominant side; R41.82 Altered mental status, unspecified; I48.91 Unspecified atrial fibrillation; I11.0 Hypertensive heart disease with heart failure; I50.9 Heart failure, unspecified; I25.10 Atherosclerotic heart disease of native coronary artery without angina pectoris; E78.5 Hyperlipidemia, unspecified; K21.9 Gastro-esophageal reflux disease without esophagitis; Z20.828 Contact with and (suspected) exposure to other viral communicable diseases; Z79.899 Other long term (current) drug therapy; Z79.01 Long term (current) use of anticoagulants; Z88.6 Allergy status to analgesic agent; Z88.8 Allergy status to other drugs, medicaments and biological substances; Z79.82 Long term (current) use of aspirin; W18.30XA Fall on same level, unspecified, initial encounter
CPT/HCPCS: 36415; 36430; 36600; 70450; 71045; 80053; 82803; 82947; 83880; 84439; 84443; 84481; 84484; 85025; 85610; 85730; 86850; 86900; 86901; 93005; 93010; 96365; 96368; 96375; 99285-25; G0480; J3430; J7050; P9059; U0004